=== PATIENT | female | born 1945 | race Caucasian/White ===

== ENCOUNTER 2018-07-18 07:50 | Inpatient (IN) ==
--- NOTE | 2018-06-29 12:55 | Anesthesiology Consultation ---
Date of Service June 29, 2018 Assessment & Plan (1) Encounter for pre-operative examination: Chart Review Chart Review: Acceptable Risk for Surgery and Patient seen in Pre Admission Testing Teaching & Discussion Instructed NPO after midnight before surgery, except medications with 15 cc of water. Medication instructions provided according to the PAT guidelines. History Surgery Operation Date: 07/18/18 11:00 Proposed Procedures p Right Total Knee Arthroplasty - Ben Hernandez MD Height/Weight Height: 4 ft 9 in Weight: 76.204 kg Allergies Allergy/AdvReac Type Severity Reaction Status Date / Time No Known Allergies Allergy Verified 06/23/18 14:30 Medications Home Medications Medication Instructions Recorded Confirmed Last Taken Cannibus Oil 5 drp SUBLINGUAL BID 06/23/18 06/23/18 Unknown calcium carbonate-vitamin D3 1 tab PO QAM 06/23/18 06/23/18 Unknown [Calcium 500 + D] flaxseed oil 1,000 mg PO QAM 06/23/18 06/23/18 Unknown omeprazole magnesium [Prilosec OTC] 20 mg PO QAM 06/23/18 06/23/18 Unknown vitamin B complex 1 tab PO QAM 06/23/18 06/23/18 Unknown vitamin E 800 unit PO QAM 06/23/18 06/23/18 Unknown Past Medical History Medical History GERD (gastroesophageal reflux disease) Obesity Osteoarthritis Patient denies significant medical history Past Surgical History Surgical History Hx of LASIK Hx of colonoscopy Hx of foot surgery left Hx of hysterectomy Total Hx of shoulder surgery right Hx of tooth extraction Hx of total knee replacement left Past Anesthesia History No Hx of Anesthesia Complications and No Family Hx of Anesthesia Complications Pt had GA with 2012 TKA. Record does not indicate why, but pt recalls the spinal 'not working.' History of PONV No Motion Sickness Screening History of Motion Sickness: Yes Social History Smoking Status: Current some day smoker Smoking cigarettes per day: h/o 1/3ppd, now just occasional social cigarette Smoking End Date: 30 yr ago Hx Alcohol Use: Yes alcohol intake frequency: a few times a month Hx Substance Use: Yes (CBD oil twice day; 5 drops under tongue) Last Used Substance Other:: 06/23/2018 Exercise / Class Metabolic Activity II 4-5 Yardwork/Stairs/Walk up hill Review of Systems Pt denies any recent chest pain, shortness of breath, palpitations, cough, fever or URI. Physical Exam Vital Signs BP: 138/79 P: 81 bpm SPO2: 99% RA T: 98.0 F R: 16 ENMT Mouth: + dentures and + edentulous Thyromental Distance: > or= 3.5 Finger Breadths (4) Mallampati Class: I Neck normal visual inspection and + limited neck extension Respiratory normal respiratory effort Auscultation: lungs clear to auscultation bilaterally Cardiovascular Rate/Rhythm: regular rate and regular rhythm Heart Sounds: + murmur (I/ systolic) Vessels: no carotid bruit Extremities: no edema Testing Electrocardiogram Date: 06/29/18 Findings: + NSR @ (73) Chest X-Ray Date: 06/29/18 Left basilar atelectasis or scarring. No convincing evidence of acute cardiopulmonary disease. Laboratory Results 06/29/18 13:21 06/29/18 13:21 Blood Type O Positive 06/29/18 13:21 Antibody Screen NEGATIVE 06/29/18 13:21 PT 10.1 Seconds (9.0-12.0) 06/29/18 13:21 INR 1.0 (0.9-1.1) 06/29/18 13:21 APTT 27.3 Seconds (21.0-31.0) 06/29/18 13:21 Hemoglobin A1c 5.7 % (4.5-5.6) H 06/29/18 13:21 Urine Color Yellow 06/29/18 13:21 Urine Appearance Clear (Clear) 06/29/18 13:21 Urine pH 7.0 (4.5-7.5) 06/29/18 13:21 Ur Specific [place] 1.008 (1.000-1.030) 06/29/18 13:21 Urine Protein Negative (Negative) 06/29/18 13:21 Urine Glucose (UA) Negative (Negative) 06/29/18 13:21 Urine Ketones Negative (Negative) 06/29/18 13:21 Urine Nitrite Negative (Negative) 06/29/18 13:21 Ur Leukocyte Esterase Negative (Negative) 06/29/18 13:21
--- NOTE | 2018-06-29 13:15 | PAT Medication Instructions ---
Medication Instructions Date of Service June 29, 2018 Home Medications Cannibus Oil 5 drp SUBLINGUAL BID calcium carbonate-vitamin D3 1 tab PO QAM flaxseed oil 1,000 mg PO QAM omeprazole magnesium [Prilosec OTC] 20 mg PO QAM vitamin B complex 1 tab PO QAM vitamin E 800 unit PO QAM STOP taking 2 weeks before surgery Cannibus Oil 5 drp SUBLINGUAL BID flaxseed oil 1,000 mg PO QAM vitamin E 800 unit PO QAM DO NOT take the morning of surgery calcium carbonate-vitamin D3 1 tab PO QAM vitamin B complex 1 tab PO QAM Take morning of surgery With a small sip of water, OTHERWISE NOTHING TO EAT OR DRINK AFTER MIDNIGHT: omeprazole magnesium [Prilosec OTC] 20 mg PO QAM Other Notes If you have any questions please call us at [phone] or [phone] or [phone] or [phone]
--- NOTE | 2018-06-29 13:43 | XRay Report ---
XR chest Pre-admission PA/Lat CLINICAL HISTORY: 73 years-old Female presenting with preoperative assessment. TECHNIQUE: PA and lateral views of the chest were obtained. COMPARISON: 10/19/2012. FINDINGS: Atherosclerosis of the aortic arch. Cardiac silhouette top normal in size. Bandlike opacity in the le ft lower lung, new from prior. Degenerative changes of the thoracic spine. S-shaped scoliotic curvatu re of the thoracic spine. Osteopenia may be present. Upper abdomen normal. IMPRESSION: 1. Left basilar atelectasis or scarring. No convincing evidence of acute cardiopulmonary disease. Electronically signed by: Mahamed Lazaro M.D. 06/29/2018 1:42 PM
[2018-06-29 14:31] LABS: Basophils # (auto) 0.04 K/uL (0-0.2); Basophils % (auto) 0.6 %; Eosinophils # (auto) 0.13 K/uL (0-0.5); Eosinophils % (auto) 1.9 %; Hematocrit (blood only) 41.4 % (37-47); Hemoglobin 13.5 g/dL (12.0-16.0); Immature Granulocytes # (auto) 0.01 K/uL (0.00-0.02); Immature Granulocytes % (auto) 0.1 %; Lymphocytes # (auto) 2.87 K/uL (1.2-3.4); Lymphocytes % (auto) 42.4 %; Mean Corpuscular Hgb Conc 32.6 g/dL (32-36); Mean Corpuscular Volume 96.7 fL (80-100); Monocytes # (auto) 0.33 K/uL (0.11-0.59); Monocytes % (auto) 4.9 %; Neutrophils # (auto) 3.39 K/uL (1.4-6.5); Neutrophils % (auto) 50.1 %; Platelet Count 268 K/uL (130-400); RDW Coefficient of Variation 13.2 % (11.5-14.5); RDW Standard Deviation 46.1 fL (36.4-46.3); Red Blood Count 4.28 M/uL (4.2-5.4); White Blood Count 6.77 K/uL (4.8-10.8)
[2018-06-29 14:37] LABS: Partial Thromboplastin Ratio 1.1; Partial Thromboplastin Time 27.3 Seconds (21.0-31.0); Prothrombin Time 10.1 Seconds (9.0-12.0)
[2018-06-29 14:52] LABS: Estimated Average Glucose 117 mg/dl
[2018-06-29 15:24] LABS: Appearance Urine Clear (Clear); Bilirubin Urine Negative (Negative); Color Urine Yellow; Glucose Urine UA Negative (Negative); Ketones Urine Negative (Negative); Leukocyte Esterase Urine Negative (Negative); Nitrite Urine Negative (Negative); Protein Urine Negative (Negative); Specific Gravity Urine 1.008 (1.000-1.030); Urobilinogen Urine Negative (Negative)
[2018-06-29 15:36] LABS: Albumin Level 3.9 gm/dl (3.4-5.0); BUN Creatinine Ratio 20.6 (10-20); Calcium 9.3 mg/dl (8.5-10.1); Creatinine Clr Calc Pharmacy 57.4 ml/min; Est GFR (African American) 92.3; Est GFR (Non-African American) 79.6; Potassium 3.6 mmol/L (3.5-5.1)
--- NOTE | 2018-07-15 12:00 | History and Physical Report ---
DATE OF ADMISSION: 07/18/2018 CHIEF COMPLAINT: Right knee pain. HISTORY OF PRESENT ILLNESS: The patient is a 73-year-old female with known osteoarthritis about her right knee. She had a previous successful left total knee arthroplasty approximately 5 years ago. She has had previous right knee arthroscopy as well as corticosteroid and viscosupplementation injections. She continues to have pain and disability with activities of daily living and now desires to proceed with right total knee arthroplasty. PAST MEDICAL HISTORY: Acid reflux, obesity. PAST SURGICAL HISTORY: Left total knee as above, hysterectomy, LASIK surgery, shoulder surgery, appendectomy, oral surgery, bunionectomy and hammertoe surgery. MEDICATIONS: Vitamin E, flax oil, B complex, calcium plus D, Prilosec, probiotic, CBD oil. ALLERGIES: No known drug allergies. SOCIAL HISTORY AND REVIEW OF SYSTEMS: Noncontributory. PHYSICAL EXAMINATION: GENERAL: Well-nourished, well-developed elderly female who appears stated age. HEENT: Normocephalic, atraumatic, extraocular movements intact, oropharynx pink and moist. NECK: Supple without adenopathy. LUNGS: Clear to auscultation bilaterally. HEART: Regular rate and rhythm. ABDOMEN: Soft, nontender, nondistended, obese. EXTREMITIES: The upper extremities are within normal limits. The right knee has a varus alignment. She complains primarily of medial compartment pain. Her range of motion is from 0-120 degrees. X-RAYS: X-rays were reviewed. She has a varus aligned knee. She has bone on bone arthritis in the medial compartment with medial joint line osteophytes. She also has moderate degenerative change about the patellofemoral joint with osteophytes. ASSESSMENT: Right knee degenerative joint disease. PLAN: Risks versus benefits were discussed, consent was obtained. The patient's primary care physician is Dr. Raymond Babin from [place]. We will proceed with right total knee arthroplasty as indicated.
[~2018-07-18 07:50] MED LIST: ACETAMINOPHEN 500 MG TAB PO SCH; BUPIVACAINE 0.5 % 5 MG/1 ML PF 10ML VIAL ONE; CEFAZOLIN 1000MG 1,000 MG/7.5 ML SYR IV SCH; CeleBREX 200 MG CAP PO SCH; FAMOTIDINE 20 MG TAB PO SCH; GABAPENTIN 300 MG PO SCH; METOCLOPRAMIDE HCL 10 MG TABLET PO SCH; ROPIVACAINE 0.5% 5 MG/ML 30 ML VIAL ONE; ROPIVACAINE 0.5% HCL/PF 150 MG, BUPIVACAINE 0.5% MPF 30 ML, EPINEPHrine 30MG/30ML (OR U... INFIL SCH; TRANEXAMIC ACID 1,000 MG **IV Intra-op IV SCH; TRANEXAMIC ACID 1,000 MG **IV Pre-op IV SCH; dexAMETHasone 4 MG TAB PO SCH
[2018-07-18] MEDS ORDERED: MIDAZOLAM HCL 1 MG/ML 2ML VIAL ONE (08:23)
[2018-07-18] MEDS ORDERED: fentaNYL citrate 100 MCG/2 ML VIAL ONE (08:23)
[2018-07-18] MEDS: LR 500ML BOLUS, THEN 15ML/HR IV SCH ×3 (08:28→14:12)
--- NOTE | 2018-07-18 09:12 | History & Physical Bridge Note ---
Date of Service July 18, 2018 History & Physical Bridge Note I have examined the patient, reviewed the History & Physical and in the interval since the performance of the History & Physical I have noted the following changes of clinical significance: no changes noted
[2018-07-18] MEDS ORDERED: POVIDONE-IODINE OP SOLN 30 ML BTL ONE (09:15)
[2018-07-18] MEDS ORDERED: BACITRACIN INJ 50,000 UNIT VIAL ONE (09:15)
[2018-07-18] MEDS ORDERED: ORTHO JOINT ANESTHETIC ONE (09:15)
[2018-07-18] MEDS ORDERED: LIDOCAINE HCL 2% 2 ML VIAL/AMP(20MG/ML) INFIL ONE (11:03)
[2018-07-18] MEDS ORDERED: PROPOFOL IV EMULSION 10 MG/ML 20 ML VIAL IV ONE (11:03)
--- NOTE | 2018-07-18 11:12 | Operative Report ---
Post Operative Report Pre & Post Diagnosis Operation Date: 07/18/18 10:20 Pre-Op Diagnosis: Right Knee Osteoarthritis Post-Op Diagnosis: Right Knee Osteoarthritis Procedure Operation Date: 07/18/18 10:20 Actual Procedures p Right Total Knee Arthroplasty(Right) - Ben Hernandez MD Surgeon Ben Hernandez MD K 9 Handler/ Deputy aren Estimated Blood Loss 10 Findings Consistent with Post-Op Diagnosis Specimens bone Disposition Accompanied Patient To Recovery: No Disposition: Recovery Room Description of Procedure Patient's left leg was prepped and draped in usual sterile manner. Limb was exsanguinated with an Esmarch bandage was applied to 3 and was mercury. Longitudinal incision was made medial parapatellar incision was made the patella was everted knee was flexed. Fat pad was removed and visualized and the knee was flexed and the patella was everted. Proximal tibia was cut using the oscillating saw and distal femur was prepared using the appropriate cutting guide. A size femur was chosen as well as a size 2 tibia trial 9 mm poly-was placed. All cement was removed after cementation of the ankle clonus. Hemovac drain was placed Betadine soap was utilized. Injection was utilized patient was awakened in stable condition tolerated procedure well Mr. Batista utilized positioning prepping draping surgical excisional assistance and dressing application. I attest to the content of the Intraoperative Record and any orders documented therein. Any exceptions are noted below.
--- NOTE | 2018-07-18 12:31 | XRay Report ---
RIGHT KNEE 2 VIEWS History: Right total knee arthroplasty. Degenerative arthritis. Postop. FINDINGS: The patient is status post a right total knee arthroplasty. The hardware is intact. No frac ture or dislocation. Surgical drains are in place. IMPRESSION: Right total knee arthroplasty. No evidence for hardware complication. Electronically signed by: Tien Clark M.D. 07/18/2018 12:30 PM
--- NOTE | 2018-07-18 13:23 | Anesthesiology Progress Note ---
Date of Service July 18, 2018 Anesthesia Post Procedure Vital Signs Vital Signs: Temp Pulse Pulse Resp BP BP Pulse Ox 07/18/18 13:20 49 L 14 98 07/18/18 13:16 66 20 94/59 L 97 07/18/18 13:15 56 L 14 98 07/18/18 13:11 44 L 16 97/57 L 96 07/18/18 13:10 47 L 17 95 07/18/18 13:06 37.1 C 51 L 13 96/65 L 96 07/18/18 13:05 51 L 16 96 07/18/18 13:01 46 L 17 99/60 L 98 07/18/18 13:00 53 L 17 98 07/18/18 12:58 45 L 14 96 07/18/18 12:57 56 L 17 104/59 L 97 07/18/18 12:55 52 L 19 98 07/18/18 12:51 56 L 15 101/57 L 97 07/18/18 12:50 47 L 12 96 07/18/18 12:46 50 L 10 L 98/65 L 96 07/18/18 12:45 45 L 16 96 07/18/18 12:41 46 L 14 102/69 96 07/18/18 12:40 44 L 12 96 07/18/18 12:36 48 L 13 99/69 L 96 07/18/18 12:35 44 L 16 97 07/18/18 12:31 46 L 13 106/62 97 07/18/18 12:30 50 L 13 96 07/18/18 12:26 46 L 17 101/66 97 07/18/18 12:25 50 L 15 98 07/18/18 12:22 57 L 10 L 106/62 98 07/18/18 12:20 48 L 15 96 07/18/18 12:17 55 L 18 100/72 98 07/18/18 12:15 60 20 100 07/18/18 12:11 44 L 13 108/60 96 07/18/18 12:10 44 L 15 96 07/18/18 12:06 44 L 16 101/72 99 07/18/18 12:05 49 L 19 96 07/18/18 12:01 58 L 17 105/70 98 07/18/18 12:00 46 L 14 99 07/18/18 11:56 48 L 15 109/68 99 07/18/18 11:55 53 L 15 100 07/18/18 11:51 51 L 15 111/65 100 07/18/18 11:50 53 L 14 98 07/18/18 11:46 54 L 12 105/69 100 07/18/18 11:45 55 L 16 100 07/18/18 11:41 43 L 14 112/62 100 07/18/18 11:40 53 L 16 101/61 99 07/18/18 11:39 36.3 C L 52 L 50 L 15 101/61 100 07/18/18 08:35 36.5 C 62 18 157/91 H 98 Pain Intensity Right Knee: Pain Intensity: 0 Notes Mental Status: alert / awake / arousable Patient Amnestic to Procedure: Yes Nausea / Vomiting: adequately controlled Pain: adequately controlled Airway Patency, RR, SpO2: stable & adequate BP & HR: stable & adequate Hydration State: stable & adequate Anesthetic Complications: no major complications apparent
[2018-07-18] MEDS ORDERED: METOCLOPRAMIDE HCL INJ 5 MG/ML 2 ML VIAL IV PRN (13:40)
[2018-07-18] MEDS ORDERED: ALUMINUM/MAGNESIUM SUSP 30 ML UDC PO PRN (13:40)
[2018-07-18] MEDS ORDERED: ONDANSETRON INJ 2 MG/ML 2 ML VIAL IV PRN (13:40)
[2018-07-18] MEDS ORDERED: MAGNESIUM HYDROXIDE SUSP 30 ML UDC PO PRN (13:40)
[2018-07-18] MEDS ORDERED: MoRPHine SULFATE 2 MG/ML CARP IV PRN (13:40)
[2018-07-18] MEDS: SODIUM CHLORIDE 0.9% 1000ML 1,000 ML IV SCH ×2 (14:45→23:32)
[2018-07-18] MEDS: KETOROLAC TROMETHAMINE 15 MG/ML VIAL IV SCH ×2 (14:48→21:23)
[2018-07-18] MEDS: ACETAMINOPHEN 500 MG TAB PO SCH ×2 (15:26→23:32)
[2018-07-18] MEDS: FERROUS GLUCONATE 324 MG TAB PO SCH (18:02)
[2018-07-18] MEDS: CEFAZOLIN 1000MG 1,000 MG/7.5 ML SYR IV SCH (18:02)
[2018-07-18] MEDS: ASPIRIN 81 MG ECTAB PO SCH (21:22)
[2018-07-18] MEDS: DOCUSATE SODIUM 100 MG CAP PO SCH (21:22)
[2018-07-19] MEDS: KETOROLAC TROMETHAMINE 15 MG/ML VIAL IV SCH ×2 (02:07→09:16)
[2018-07-19] MEDS: CEFAZOLIN 1000MG 1,000 MG/7.5 ML SYR IV SCH (02:07)
[2018-07-19 06:05] LABS: Hematocrit (blood only) 32.7 % (37-47); Hemoglobin 10.6 g/dL (12.0-16.0); Mean Corpuscular Hgb Conc 32.4 g/dL (32-36); Mean Corpuscular Volume 96.7 fL (80-100); Platelet Count 213 K/uL (130-400); RDW Coefficient of Variation 13.2 % (11.5-14.5); RDW Standard Deviation 45.8 fL (36.4-46.3); Red Blood Count 3.38 M/uL (4.2-5.4); White Blood Count 12.76 K/uL (4.8-10.8)
[2018-07-19 06:38] LABS: BUN Creatinine Ratio 17.4 (10-20); Calcium 8.3 mg/dl (8.5-10.1); Creatinine Clr Calc Pharmacy 52.2 ml/min; Est GFR (African American) 81.7; Est GFR (Non-African American) 70.4; Potassium 3.8 mmol/L (3.5-5.1)
--- NOTE | 2018-07-19 07:28 | Orthopedic Progress Note ---
Date of Service July 19, 2018 Assessment & Plan (1) Status post right knee replacement: 73 yo female stable POD #1 s/p right TKA 1. Med management 2. DVT prophylaxis- ASA, SCDs 3. PT/OT 4. D/C planning- home w/ HH Subjective Pt resting comfortably in bed, pain controlled, denies complaints Physical Exam 2 Vital Signs (Past 24 Hours): Last Vital Signs Temp 36.8 C 07/19/18 06:54 Pulse 58 L 07/19/18 06:54 Resp 16 07/19/18 06:54 BP 129/80 07/19/18 06:54 Pulse Ox 97 07/19/18 06:54 Physical Exam: Toes mobile, N/V/I, dressing and drain in place, mild foot drop Results & Data Laboratory Results 07/19/18 07/19/18 07/19/18 Range/Units 05:48 05:48 05:48 WBC 12.76 H (4.8-10.8) K/uL RBC 3.38 L (4.2-5.4) M/uL Hgb 10.6 L (12.0-16.0) g/dL Hct 32.7 L (37-47) % MCV 96.7 (80-100) fL MCH 31.4 (25-34) pg MCHC 32.4 (32-36) g/dL RDW Std Deviation 45.8 (36.4-46.3) fL RDW Coeff of Mark 13.2 (11.5-14.5) % Plt Count 213 (130-400) K/uL MPV 10.0 (7.4-10.4) fL Sodium 139 (136-145) mmol/L Potassium 3.8 (3.5-5.1) mmol/L Chloride 108 H (98-107) mmol/L Carbon Dioxide 22 (21-32) mmol/L Anion Gap 9.0 (3-11) BUN 14 (7-18) mg/dl Creatinine 0.83 (0.6-1.2) mg/dl Est Cr Clr Drug Dosing 52.2 ml/min Est GFR ( Amer) 81.7 Est GFR (Non-Af Amer) 70.4 BUN/Creatinine Ratio 17.4 (10-20) Glucose 125 H (70-99) mg/dl Calcium 8.3 L (8.5-10.1) mg/dl Hepatitis C Ab Screen Pending
[2018-07-19] MEDS ORDERED: dexAMETHasone 10 MG in SYRINGE 0 ML IV SCH (08:00)
--- NOTE | 2018-07-19 08:21 | Anesthesiology Progress Note ---
Date of Service July 19, 2018 Anesthesia Post Procedure Vital Signs Vital Signs: Temp Pulse Resp BP Pulse Ox 07/19/18 15:12 36.6 C 68 22 132/74 97 07/19/18 14:03 144/74 H 07/19/18 12:19 37.0 C 72 16 166/88 H 97 07/19/18 06:54 36.8 C 58 L 16 129/80 97 07/19/18 03:26 36.6 C 73 16 131/70 99 07/18/18 23:09 36.3 C L 56 L 16 113/70 96 07/18/18 19:44 36.6 C 72 20 117/78 93 Pain Intensity Right Knee: Pain Intensity: 0 Notes Mental Status: alert / awake / arousable and participated in evaluation Patient Amnestic to Procedure: Yes Nausea / Vomiting: adequately controlled Pain: adequately controlled Airway Patency, RR, SpO2: stable & adequate BP & HR: stable & adequate Hydration State: stable & adequate Neuraxial Anesthesia: was administered and see Notes below (pt c/o difficulty moving and limited sensation of right/operative knee. also c/o inability to stand on that leg/ "gives out every time" will inform Dr. Oconnor or Dr. Astudillo ) Anesthetic Complications: Pt Satisfied with anesthetic care Notes: I evaluated Ms. Guzman this afternoon for her complaint of right leg weakness. The patient reports that this morning her knee felt floaty and that if she tried to lift her right leg while standing it would give out. She reports that these symptoms have significantly improved this afternoon. She is now reporting increased sensation in the back of her right knee. She had a session with physical therapy earlier today and has been ambulating with the assistance of a walker this afternoon without complications. On exam she was sitting in her bedside chair in no acute distress. She was alert and oriented x 3. She has full strength against gravity on the right quad, but has a slight decrease in quad strength against resistance when compared to the left LE. She is able to extend and flex her right LE at the knee against gravity. Sensation was not tested due to her right LE being bandaged from surgery. She denied any other complications from anesthesia. I suspect that the patients symptoms are a combination of normal post surgical findings as well as some residual femoral nerve blockade from her adductor canal block. She has experienced significant improvement over the last 8 hours and I would expect her symptoms should continue to improve. Anesthesia will follow-up again tomorrow. In the meantime, please contact us with any questions or concerns. Yarely Oconnor MD, PhD Anesthesiology
[2018-07-19] MEDS ORDERED: VITAMIN B COMPLEX PO SCH (09:00)
[2018-07-19] MEDS: CALCIUM 600MG + VIT D 400 IU TAB PO SCH (09:11)
[2018-07-19] MEDS: ASPIRIN 81 MG ECTAB PO SCH ×2 (09:11→21:33)
[2018-07-19] MEDS: DOCUSATE SODIUM 100 MG CAP PO SCH ×2 (09:11→21:33)
[2018-07-19] MEDS: FERROUS GLUCONATE 324 MG TAB PO SCH ×3 (09:11→16:24)
[2018-07-19] MEDS: ACETAMINOPHEN 500 MG TAB PO SCH ×3 (09:11→21:33)
[2018-07-19] MEDS: TOCOPHERYL, DL-ALPHA 400 UNITS CAP PO SCH (09:12)
[2018-07-19] MEDS: PANTOprazole 40 MG TAB PO SCH (09:12)
[2018-07-19] MEDS: MULTIVITAMIN TAB PO SCH (09:44)
[2018-07-20] MEDS: OXYCODONE HCL IR 5 MG TAB (IMMEDIATE RELEASE) PO PRN ×2 (03:27→08:07)
--- NOTE | 2018-07-20 07:25 | Orthopedic Progress Note ---
Date of Service July 20, 2018 Assessment & Plan (1) Status post right knee replacement: 73 yo female stable POD #2 s/p right TKA 1. Med management 2. DVT prophylaxis- ASA, SCDs 3. PT/OT 4. D/C planning- home w/ HH Subjective Pt resting comfortably in chair, pain controlled, denies complaints Physical Exam 2 Vital Signs (Past 24 Hours): Last Vital Signs Temp 36.7 C 07/20/18 06:07 Pulse 61 07/20/18 06:07 Resp 16 07/20/18 06:07 BP 152/83 H 07/20/18 06:07 Pulse Ox 99 07/20/18 06:07 Physical Exam: Dressing/drain d/c'd. Incision C/D/I, toes mobile, NVI
[2018-07-20] MEDS: TOCOPHERYL, DL-ALPHA 400 UNITS CAP PO SCH (08:05)
[2018-07-20] MEDS: ASPIRIN 81 MG ECTAB PO SCH (08:05)
[2018-07-20] MEDS: ACETAMINOPHEN 500 MG TAB PO SCH (08:05)
[2018-07-20] MEDS: DOCUSATE SODIUM 100 MG CAP PO SCH (08:06)
[2018-07-20] MEDS: MULTIVITAMIN TAB PO SCH (08:06)
[2018-07-20] MEDS: CALCIUM 600MG + VIT D 400 IU TAB PO SCH (08:06)
[2018-07-20] MEDS: PANTOprazole 40 MG TAB PO SCH (08:06)
[2018-07-20] MEDS: FERROUS GLUCONATE 324 MG TAB PO SCH (08:07)
--- NOTE | 2018-07-27 23:06 | Discharge Summary ---
CHIEF COMPLAINT: Right knee pain. Please see complete history and physical examination. HOSPITAL COURSE: The patient underwent right total knee arthroplasty without complication. She tolerated the procedure well and was discharged to recovery room in stable condition. Her postop course has been relatively uneventful. Her postoperative pain was reasonably well controlled with a combination of spinal anesthesia, adductor canal block, intraoperative joint injection, IV, and oral pain medications. She was started on aspirin for DVT prophylaxis. She also utilized CARRIE stockings and SCDs for additional prophylaxis. Her H and H was stable and did not require transfusion. Her surgical drain and dressing were discontinued by postoperative day #2. Her surgical dressing will remain in place for approximately 7 days postoperative. She tolerated postoperative physical therapy reasonably well. She was bending her knee and ambulating appropriately. She was discharged home on postoperative day 2. She will continue her physical therapy at home. She will continue her aspirin for DVT prophylaxis and follow up in our office in approximately 10-14 days for her initial postop evaluation.
== END 2018-07-20 11:28 | disposition home health service (06) | DRG 470 ==
LOC: ASU 07:50 → 3E 11:45